=== PATIENT | male | born 1965 | race Two or more races ===

== ENCOUNTER → 2020-03-02 | Outpatient (CLI) | payer OTHER ==
--- NOTE | 2020-03-02 20:12 | RADIOLOGY REPORT (SQ) ---
MR UPPER EXTREMITY JOINT WITHOUT IV CONTRAST HISTORY: Right elbow pain and swelling for 2 weeks. COMPARISON: None. TECHNIQUE: Multiplanar, multisequence MR imaging of the right elbow was performed without the administration of intravenous gadolinium. FINDINGS: Common extensor tendon: Intact. Radial collateral ligament: Intact. Lateral ulnar collateral ligament: Intact. Common flexor tendon: Intact. Ulnar collateral ligament: Intact. Biceps tendon: There is a full-thickness tear of the distal biceps tendon with approximately 10 cm retraction from its insertion on the radial tuberosity. There is surrounding hematoma measuring 4.8 x 2.4 cm.. Brachialis tendon: Intact. Triceps tendon: Intact. Cartilage: Intact. Nerves: Normal size and signal intensity. IMPRESSION: Full-thickness tear of the distal biceps tendon with 10 cm retraction and surrounding hematoma.
== END ==
LOC: RAD 16:50
PROVIDERS: ATTEND Orthopaedic Surgery
DX: S46.211A Strain of muscle, fascia and tendon of other parts of biceps, right arm, initial encounter (principal); X58.XXXA Exposure to other specified factors, initial encounter; M25.521 Pain in right elbow

== ENCOUNTER 2020-03-06 09:24 | Day surgery (SDC) | payer OTHER ==
[2020-02-29 10:53] LABS: ABSOLUTE EOSINOPHILS # (AUTO) 0.1 10^3/uL (0.0-0.6); ABSOLUTE LYMPHOCYTES (AUTO) 2.4 10^3/uL (0.5-4.7); ABSOLUTE MONOCYTES (AUTO) 0.6 10^3/uL (0.1-1.4); ABSOLUTE NEUT (AUTO) 1.6 10^3/uL (1.7-8.2); BASOPHILS % (AUTO) 0.2 % (0-2); EOSINOPHILS % (AUTO) 2.7 % (0-6); HEMATOCRIT 36.4 % (37.9-51.0); HEMOGLOBIN 12.4 g/dL (13.5-17.0); MEAN CORPUSCULAR HEMOGLOBIN 29.5 pg (27.0-33.4); MEAN CORPUSCULAR VOLUME 87 fl (80-97); MONOCYTES % (AUTO) 12.6 % (3-13); PLATELET COUNT 270 10^3/uL (150-450); RED CELL DISTRIBUTION WIDTH 13.3 % (11.5-14.0); SEGMENTED NEUTROPHILS % (AUTO) 33.5 % (42-78); TOTAL CELLS COUNTED % (AUTO) 100 %; WHITE BLOOD COUNT 4.7 10^3/uL (4.0-10.5)
--- NOTE | 2020-02-29 11:11 | RADIOLOGY REPORT (SQ) ---
EXAM DESCRIPTION: CHEST PA/LATERAL IMAGES COMPLETED DATE/TIME: 02/29/2020 10:19 am REASON FOR STUDY: PRE-OP COMPARISON: 10/08/2012 EXAM PARAMETERS: NUMBER OF VIEWS: two views TECHNIQUE: Digital Frontal and Lateral radiographic views of the chest acquired. RADIATION DOSE: NA LIMITATIONS: none FINDINGS: LUNGS AND PLEURA: No opacities, masses or pneumothorax. No pleural effusion. MEDIASTINUM AND HILAR STRUCTURES: No masses or contour abnormalities. HEART AND VASCULAR STRUCTURES: Heart normal size. No evidence for failure. BONES: No acute findings. HARDWARE: None in the chest. OTHER: No other significant finding. IMPRESSION: NO SIGNIFICANT RADIOGRAPHIC FINDING IN THE CHEST. TECHNICAL DOCUMENTATION: JOB ID: [id number] 2010 [employer]- All Rights Reserved Reading location - IP/workstation name: [email or web address]
[2020-02-29 11:14] LABS: ANION GAP 7 (5-19); BLOOD UREA NITROGEN 17 mg/dL (7-20); CALCIUM 9.2 mg/dL (8.4-10.2); CARBON DIOXIDE 29 mmol/L (22-30); CHLORIDE 104 mmol/L (98-107); GLUCOSE 86 mg/dL (75-110); POTASSIUM 4.1 mmol/L (3.6-5.0)
--- NOTE | 2020-02-29 22:33 | EKG REPORT ---
SEVERITY:- ABNORMAL ECG - SINUS RHYTHM LEFT ANTERIOR FASCICULAR BLOCK : Confirmed by: Sona Garcia MD 29-Feb-2020 22:32:15
[~2020-03-06 09:24] MED LIST: BUPIVACAINE HCL 0.5 % INJ/PF 30 ML SDV ONE; BUPIVACAINE HCL 0.5%-EPI 1:200000 INJ/PF 30 ML VIAL ONE; CEFAZOLIN SODIUM 2 GM in DEXTROSE 5%-WATER 100 ML IV PRN; GLYCOPYRROLATE 1 MG/5 ML VIAL ONE; KETOROLAC TROMETHAMINE 60 MG/2 ML SDV ONE; LACTATED RINGERS 1000 ML IV PRN; LIDOCAINE 0.5% INJ-PF (5 MG/ML) 50 ML SDV SUBCUT PRN; ONDANSETRON HCL INJ/PF 4 MG/2 ML SDV ONE; SUCCINYLCHOLINE CHLORIDE INJ 200 MG/10 ML VIAL ONE
[2020-03-06] MEDS ORDERED: MIDAZOLAM 2 MG/2 ML INJ ONE (11:21)
[2020-03-06] MEDS ORDERED: HYDROMORPHONE HCL INJ/PF 2 MG/ML AMPULE ONE (11:21)
[2020-03-06] MEDS ORDERED: LIDOCAINE 2% INJ-PF (20 MG/ML) 10 ML AMPUL ONE (11:21)
[2020-03-06] MEDS ORDERED: DEXAMETHASONE SOD PHOSPHATE INJ 4 MG/1 ML VIAL ONE (11:21)
[2020-03-06] MEDS ORDERED: ONDANSETRON HCL INJ/PF 4 MG/2 ML SDV ONE (11:21)
[2020-03-06] MEDS ORDERED: PROPOFOL INJ 200 MG/20 ML VIAL IV ONE (11:21)
[2020-03-06] MEDS ORDERED: FENTANYL CITRATE INJ/PF 100 MCG/2 ML AMPUL ONE (11:21)
[2020-03-06] MEDS ORDERED: BUPIVACAINE HCL 0.5 % INJ/PF 30 ML SDV ONE (11:30)
[2020-03-06] MEDS ORDERED: EPHEDRINE SULFATE INJ 50 MG/1 ML AMPULE ONE (12:02)
[2020-03-06] MEDS ORDERED: PROMETHAZINE HCL INJ 25 MG/1 ML VIAL IV PRN ×2 (12:12)
[2020-03-06] MEDS ORDERED: OXYCODONE-ACETAMINOPHEN 5-325 MG TABLET PO PRN ×3 (12:12→14:52)
[2020-03-06] MEDS ORDERED: DIPHENHYDRAMINE HCL 50 MG/ML VIAL IV PRN (12:12)
[2020-03-06] MEDS ORDERED: FENTANYL CITRATE INJ/PF 100 MCG/2 ML AMPUL IV PRN ×3 (12:12)
[2020-03-06] MEDS ORDERED: MORPHINE SULFATE 10 MG/ML INJ IV PRN ×2 (12:12→14:52)
[2020-03-06] MEDS ORDERED: MEPERIDINE HCL/PF INJ 25 MG/1 ML DISP.SYRIN IV PRN (12:12)
--- NOTE | 2020-03-06 14:52 | Discharge Summary ---
Discharge Summary (SDC) - Discharge Final Diagnosis: Right distal biceps tendon rupture Date of Surgery: 03/06/20 Discharge Date: 03/06/20 Condition: Good Forms: ASU Anesthesia D/C Instruction, Discharge POC-Surgical Service Treatment or Instructions: Schedule Follow Up w/ Dr. Joe Ly @ [facility] to be seen in 10-14 days or as scheduled [place]: [place]: [place]: Ice and elevate Keep splint clean/dry/intact, do not remove. If your fingers become numb please unwrap the Matthew wrap but leave the splint in place, if the sensation does not return within 30 minutes please return to the emergency department. May begin finger range of motion attempting to make full fist. Please use ibuprofen (Motrin or Advil) 600-800 mg every 8 hours as needed for pain or fever DO NOT TAKE w/ TORADOL may use once TORADOL complete. You may also use acetaminophen (Tylenol) 1000 mg every 4-6 hours as needed for pain or fever. Please be aware that many medications contain acetaminophen, do not exceed a total of 1000 mg of acetaminophen every 6 hours. If ibuprofen and acetaminophen are not sufficient for your pain you may take the Percocet/[place]. Please be aware that the Percocet/[place] does contain Tylenol. Stool softener of choice when on pain medication. USE OF [id number] IBUPROFEN: Ibuprofen (Advil, Nuprin, Medipren, Motrin IB) is a medication for fever and pain control. In addition, it has anti- inflammatory effects which may be beneficial, especially in the treatment of injuries. It's best to take ibuprofen with food. Persons with ulcer disease or allergy to aspirin should notify their physician of this before taking ibuprofen. Ibuprofen can be given every four to six hours, for a total of four doses daily. Age Pain or fever dose Antiinflammatory dose 6-8 yr 200 mg (1 tab) 200 mg (1 tab) 9-11 yr 200 mg (1 tab) 200-400 mg (1-2 tab) 11-14 yr 200-400 mg (1-2 tab) 400 mg (2 tab) 15-adult 400 mg (2 tab) 600 mg (3 tab) ORAL NARCOTIC MEDICATION: You have been given a prescription for pain control. This medication is a narcotic. It's best taken with food, as nausea can result if taken on an empty stomach. Don't operate machinery or drive within six hours of taking this medication. Do not combine this medicine with alcohol, or with any medication which can cause sedation (such as cold tablets or sleeping pills) unless you get permission from the physician. Narcotics tend to cause constipation. If possible, drink plenty of fluids and eat a diet high in fiber and fruits. Please be aware that prescription narcotics also have the potential for abuse. People become addicted to these medications because of the general sense of wellbeing that they induce. This feeling along with a significant reduction in tension, anxiety, and aggression provides a stimulating seductive quality to these drugs. Once your pain is under control, we encourage you to discard your unused narcotics. Prescriptions: Ketorolac Tromethamine [Toradol 10 mg Tablet] 10 mg PO Q8HP PRN #12 tablet PRN Reason: Oxycodone HCl/Acetaminophen [Percocet 5-325 mg Tablet] 1 tab PO Q6 PRN #25 tab PRN Reason: Referrals: JOE LY DO [ACTIVE STAFF] - Respiratory Treatments at Home: Deep Breathing/Coughing Discharge Activity: No Lifting Over 10 Pounds, No Lifting/Push/Pulling Report the Following to Your Physician Immediately: Fever over 101 Degrees, Unusual Bleeding, Redness, Swelling, Warmth, Increased Soreness
--- NOTE | 2020-03-06 14:52 | Operative Report ---
Operative Report DATE OF SURGERY: 03/06/20 PREOPERATIVE DIAGNOSIS: Right distal biceps tendon rupture POSTOPERATIVE DIAGNOSIS: Same OPERATION: Repair right distal biceps with tendon allograft SURGEON: CHUY LY ANESTHESIA: GA COMPLICATIONS: None ESTIMATED BLOOD LOSS: 75cc PROCEDURE: Indication for above procedure: 54-year-old male who sustained an injury to his right biceps. Patient felt a pop with pain and bruising throughout the upper arm. He was then seen in the office where diagnosis consistent with distal biceps tendon rupture. Patient MRI confirming diagnosis. We discussed treatment options including operative versus nonoperative intervention risk and benefits were explained patient verbalized understanding consented for surgical procedure. Procedure In Detail: Patient was seen and evaluated in the preoperative holding area. The RIGHT upper extremity was initialized and marked. Patient received 2g of Ancef IV for bacterial prophylaxis. Patient was taken back to the operative room where transferred to the operative table and placed under general anesthesia. Once they were adequately anesthetized a nonsterile tourniquet was placed on the upper extremity. A surgical team debriefing was performed ensuring all instrumentation was available, the surgical procedure was discussed with possible concerns reviewed. The upper extremity was prepped with ChloraPrep and alcohol and draped in a sterile fashion. A timeout was done identifying correct patient, procedure and extremity everyone in attendance agree with this and verbalized no concerns. The extremity was exsanguinated the tourniquet was inflated to 250 mmHg. Longitudinal skin incision was made along the volar aspect of the forearm radially. Blunt dissection was performed. Brachioradialis was identified along with the lateral antebrachial cutaneous nerve which was neurolysed and retracted. Evash of Jeffery was noted patient had significant vessels along the leash of Jeffery limiting exposure to the biceps tuberosity thus these vessels were ligated with suture and a Ligaclip in order to achieve adequate exposure.. The biceps tuberosity was then identified there was portion of the biceps tendon intact along the proximal aspect of the biceps tuberosity. The additional biceps tendon was not identified through this incision. Blunt finger dissection performed proximally did palpate remnant biceps tendon proximal along the muscle belly. Thus the incision was extended in a curvilinear fashion in order to identify the remaining biceps. The remaining biceps was then identified and scarred into the muscle belly with tearing along the musculotendinous junction which resulted in retraction of the biceps muscle belly. Once adequately debrided the tendon was identified however given its scarring to the muscle belly I was unable to obtain adequate release in order to primarily fixate the muscle. Thus decision was made to proceed with allograft tendon. Remnant muscle belly was first secured to the remanent tendon to provide further fixation. I then measured appropriate length of my graft into the muscle belly and 5 Pulvertaft weave's were placed throughout the muscle belly and musculotendinous junction securing each past with horizontal mattress #2 FiberWire. The tendon graft was then secured with a #2 Fiber Loop from [employer] and distal biceps button secured distally. Once again the biceps tuberosity was exposed maintaining full supination of the elbow no reversed retractors were placed along the radial aspect of the biceps tuberosity. The cortex was then drilled unit cortically C arm was obtained confirming appropriate placement of the drill. Biceps button was then docked into the radial tuberosity with a intraosseous suture button technique. The button was then further secured with free suture passes into the graft. To provide further stability the graft was secured to the intact remnant biceps tendon with interrupted #2 FiberWire suture. Wound was then copiously irrigated with normal saline. Tourniquet was deflated. Patient's attention was at approximately 30 degrees of elbow flexion. Any per ipheral bleeding was controlled with bipolar cautery into the wound was dry. Subcutaneous tissues were closed with interrupted 4-0 Monocryl suture. Skin was closed with subcuticular 4-0 Monocryl reinforced with Dermabond and Steri- Strips. Patient was placed in a posterior splint maintaining elbow flexion at 90 degrees. Sponge counts, instrument counts, needle counts were correct. Patient was then awoken from anesthesia. Transferred from the operating room table to the operating room stretcher. There was no intraoperative complications patient tolerated procedure well stable to PACU. Postop plan: Patient will follow in the office in 2 weeks for wound check. Patient will begin physical therapy 2 weeks postoperatively and be fitted for a hinged elbow brace with the elbow at 60 degrees of flexion. Will decrease extension 15 degrees/week until full extension is obtained 6 weeks postoperatively.
--- NOTE | 2020-03-06 15:09 | RADIOLOGY REPORT (SQ) ---
EXAM DESCRIPTION: FOREARM RIGHT; NO CHG FLUORO IMAGES COMPLETED DATE/TIME: 03/06/2020 2:57 pm REASON FOR STUDY: RIGHT BICEP TENDON REPAIR ASST WITH FLUORO IN OR S46.291A INJ MUSCLE, FASCIA AND TENDON OF PRT BICEPS, RIGHT COMPARISON: None. FLUOROSCOPY TIME: 2 seconds. 1 image submitted to PACS. TECHNIQUE: Fluoroscopic guidance was used intraoperatively during a right biceps tendon repair. LIMITATIONS: None. FINDINGS: Refer to the separate operative report. IMPRESSION: IMAGE(S) OBTAINED DURING PROCEDURE. COMMENT: Quality ID 145: Final reports for procedures using fluoroscopy that document radiation exp osure indices, or exposure time and number of fluorographic images (if radiation exposure indices are not available) Please consult full operative report of the attending physician for description of the procedure. TECHNICAL DOCUMENTATION: JOB ID: [id number] 2010 [employer]- All Rights Reserved Reading location - IP/workstation name: [email or web address]
--- NOTE | 2020-03-06 15:09 | RADIOLOGY REPORT (SQ) ---
EXAM DESCRIPTION: FOREARM RIGHT; NO CHG FLUORO IMAGES COMPLETED DATE/TIME: 03/06/2020 2:57 pm REASON FOR STUDY: RIGHT BICEP TENDON REPAIR ASST WITH FLUORO IN OR S46.291A INJ MUSCLE, FASCIA AND TENDON OF PRT BICEPS, RIGHT COMPARISON: None. FLUOROSCOPY TIME: 2 seconds. 1 image submitted to PACS. TECHNIQUE: Fluoroscopic guidance was used intraoperatively during a right biceps tendon repair. LIMITATIONS: None. FINDINGS: Refer to the separate operative report. IMPRESSION: IMAGE(S) OBTAINED DURING PROCEDURE. COMMENT: Quality ID [id number]: Final reports for procedures using fluoroscopy that document radiation exp osure indices, or exposure time and number of fluorographic images (if radiation exposure indices are not available) Please consult full operative report of the attending physician for description of the procedure. TECHNICAL DOCUMENTATION: JOB ID: [id number] 2010 [employer]- All Rights Reserved Reading location - IP/workstation name: [email or web address]
[2020-03-06] MEDS ORDERED: PROMETHAZINE HCL INJ 25 MG/1 ML VIAL ONE (15:11)
[2020-03-06] MEDS ORDERED: ATROPINE SULFATE INJ 1 MG/10 ML DISP.SYRIN IV ONE (15:32)
[2020-03-06] MEDS ORDERED: OXYCODONE-ACETAMINOPHEN 5-325 MG TABLET ONE (16:12)
[2020-03-06 19:22] VITALS: BP 140/88
== END 2020-03-06 17:20 | disposition home or self-care (01) ==
LOC: OROUT 09:24
PROVIDERS: ATTEND Orthopaedic Surgery
DX: S46.211A Strain of muscle, fascia and tendon of other parts of biceps, right arm, initial encounter (principal); X58.XXXA Exposure to other specified factors, initial encounter; M25.521 Pain in right elbow; Z79.899 Other long term (current) drug therapy; E78.5 Hyperlipidemia, unspecified; I10 Essential (primary) hypertension; E89.0 Postprocedural hypothyroidism; Z03.818 Encounter for observation for suspected exposure to other biological agents ruled out
CPT/HCPCS: 93005; 36415; 85025; 87635; 80048; 71046; 73090; 93010; 24341; 15271; C1713; J2250; J0461; J3490 ×5; J0690; J1100; J1885; J3010; J1170; J2550; J0330; J2405; J7060; J2704; 01710